=== PATIENT | female | born 1950 | race Caucasian/White ===

== ENCOUNTER 2016-08-26 00:04 | Emergency (ER) | payer OTHER ==
--- NOTE | 2016-08-26 00:07 | PDOC ---
History of Present Illness - General Chief Complaint: Pain, Acute Stated Complaint: LEFT SIDED ABDOMINAL PAIN SINCE APRIL Time Seen by Provider: 08/26/16 00:06 History Source: Patient Exam Limitations: No Limitations - History of Present Illness Initial Comments: 08/26/16 01:44 This is a 66-year-old female who comes in complaining of left-sided abdominal pain times approximately 5 months intermittent. Patient doesn't pain is sharp and intermittent in nature. Patient denies any associated symptoms of nausea, vomiting, diarrhea, cough, congestion shortness of breath or any other complaints. PAST MEDICAL HISTORY: no significant history PAST SURGICAL HISTORY: no significant history FAMILY HISTORY: no pertinant history SOCIAL HISTORY: Pt lives with family and is employed. MEDICATIONS: reviewed ALLERGIES: As per nursing notes Review of Systems General: No fevers or chills, no weakness, no weight loss HEENT: No change in vision. No sore throat,. No ear pain CardioVascular: No chest pain or shortness of breath Respiratory:No cough, or wheezing. Gastrointestinal: As per history of present illness Genitourinary: No dysuria, hematuria, or frequency Musculoskeletal: No joint or muscle pain or swelling Neurologic: No headache, vertigo, dizziness or loss of consciousness Psychiatric: nor depression Skin: No rashes or easy bruising Endocrine: no increased thirst or abnormal weight change Allergic: no skin or latex allergy All other systems reviewed and normal Exam: General: Well-nourished well-developed individual, no acute distress HEENT: Throat: Normal, tonsils normal, no erythema or exudate Neck: Supple, no meningeal signs, no lymphadenopathy Eyes::Pupils equal reactive and round, extraocular motion intact Chest: Nontender to palpation Cardiac: S1-S2 normal, regular rate and rhythm, no murmurs rubs or gallops Respiratory: Lungs clear to auscultation bilateral Abdomen: Soft, nondistended, normal bowel sounds, nontender to palpation diffusely Extremities: Warm, dry, no cyanosis, clubbing, or edema Skin: No rashes Neuro: Alert and oriented x3, nonfocal exam, grossly intact, normal gait Psych: Normal mood and affect Abdominal x-ray flat no break no acute disease, large amount of stool Assessment and plan: This is a 66-year-old female with left-sided intermittent abdominal pain. Patient's x-ray shows a large amount constipation which is most likely the cause of her pain otherwise was normal white count and no abnormal chemistries. Past History - Past Medical History Allergies/Adverse Reactions: Allergies Allergy/AdvReac Type Severity Reaction Status Date / Time No Known Allergies Allergy Verified 08/26/16 00:06 Home Medications: Ambulatory Orders NK [No Known Home Medication] 08/26/16 ED Treatment Course - LABORATORY CBC & Chemistry Diagram: 08/26/16 00:35 08/26/16 00:35 *DC/Admit/Observation/Transfer Diagnosis at time of Disposition: Constipation - Discharge Dispostion Disposition: HOME Condition at time of disposition: Stable Admit: No - Patient Instructions Additional Instructions: Tomorrow drink the bottle of magnesium citrate. Return to the emergency department immediately with ANY new, persistent or worsening symptoms. Continue any medications as previously prescribed by your physician. You should follow up with your primary doctor as soon as possible regarding today's emergency department visit. . Please make sure your doctor reviews the results of your emergency evaluation. Thank you for coming to the Emergency Department today for your care. It was a pleasure to see you today. Please note that your evaluation is INCOMPLETE until you follow-up with your doctor.
[2016-08-26 00:39] VITALS: BP 134/77; PULSE 81; TEMP 97.8; BMI 22.1
[2016-08-26 01:16] LABS: BASOPHIL 0.4 % (0-2.0); EOSINOPHIL 3.4 % (0-4.5); MCH 30.3 pg (25.7-33.7); MCHC 33.4 g/dl (32.0-36.0); MEAN CELL VOLUME 90.5 fl (80-96); MEAN PLT VOLUME 9.7 fl (7.5-11.1); NEUTROPHILS 59.2 % (42.8-82.8); PLATELET COUNT 170 K/MM3 (134-434); RDW 12.8 % (11.6-15.6); WHITE BLOOD COUNT 4.5 K/mm3 (4.0-10.0)
[2016-08-26 01:28] LABS: INR 0.99 (0.82-1.09); PROTHROMBIN TIME (PATIENT) 10.9 SEC (9.98-11.88)
[2016-08-26 01:38] LABS: ALBUMIN 3.7 g/dl (3.4-5.0); ANION GAP 9 (8-16); BILIRUBIN,TOTAL 0.3 mg/dL (0.2-1.0); CALCIUM 9.5 mg/dL (8.5-10.1); CO2 30 mmol/L (21-32); COCKROFT - GAULT 60.2395; CREATININE 0.8 mg/dL (0.55-1.02); GLUCOSE,RANDOM 107 mg/dL (74-106); SGOT/AST 17 U/L (15-37); SGPT/ALT 25 U/L (12-78); TOT PROT 6.4 g/dl (6.4-8.2)
[2016-08-26 01:39] LABS: ALK PHOS 100 U/L (45-117)
[2016-08-26] MEDS ORDERED: MAGNESIUM CITRATE 300 ML BOTTLE PO ONE (01:48)
[2016-08-26] MEDS ORDERED: MAGNESIUM CITRATE 300 ML BOTTLE ONE (01:49)
== END 2016-08-26 01:55 | disposition home or self-care (01) ==
LOC: FER 00:04
DX: K59.00 Constipation, unspecified (principal)
CPT/HCPCS: 36415; 74020-TC; 80053; 83690; 85025; 85610; 99282-25

== ENCOUNTER 2020-01-07 11:16 | Emergency (ER) | payer OTHER ==
[2020-01-07 11:57] VITALS: BP 150/84; PULSE 73; TEMP 98.2; BMI 22.1
[2020-01-07] MEDS ORDERED: ACETAMINOPHEN 1000 MG/100 ML VIAL (NON FORMULARY) IVPB ONE (12:06)
[2020-01-07] MEDS ORDERED: SODIUM CHLORIDE 0.9% 500 ML INFUS.BAG IV ONE (12:06)
[2020-01-07 12:36] LABS: EPITHELIAL CELLS RARE /hpf
[2020-01-07 12:40] LABS: BASO % 0.3 % (0-2.0); EOS % 1.2 % (0-4.5); HEMATOCRIT 39.2 % (32.4-45.2); HEMOGLOBIN 12.9 GM/dl (10.7-15.3); MCH 30.8 pg (25.7-33.7); MEAN CELL VOLUME 93.5 fl (80-96); MEAN PLT VOLUME 9.3 fl (7.5-11.1); MONO % 6.3 % (3.8-10.2); NEUT % 78.2 % (42.8-82.8); PLATELET COUNT 209 K/MM3 (134-434); RBC 4.19 M/mm3 (3.60-5.2); RDW 11.9 % (11.6-15.6); WHITE BLOOD COUNT 8.3 K/mm3 (4.0-10.8)
[2020-01-07 12:51] LABS: ALBUMIN 4.3 g/dl (3.4-5.0); BILIRUBIN,TOTAL 0.7 mg/dl (0.2-1); CALCIUM 9.4 mg/dl (8.5-10); CREATININE 0.8 mg/dl (0.55-1.3); POTASSIUM 4.1 mmol/L (3.5-5.1); TOT PROT 7.1 g/dl (6.4-8.2)
[2020-01-07] MEDS ORDERED: PHENAZOPYRIDINE HCL 100 MG TABLET (FP) PO ONE (13:46)
[2020-01-07] MEDS ORDERED: CEPHALEXIN MONOHYDRATE 500 MG CAPSULE (UD) PO ONE (13:46)
--- NOTE | 2020-01-07 13:52 | PDOC ---
History of Present Illness - General Chief Complaint: Chronic pain Stated Complaint: FLANK PAIN Time Seen by Provider: 01/07/20 11:32 History Source: Patient Exam Limitations: No Limitations - History of Present Illness Initial Comments: 01/07/20 13:47 CHIEF COMPLAINT: Suprapubic and right lower quadrant pressure pain today. HISTORY OF PRESENT ILLNESS: Patient is a 70-year-old woman with a history of right hip bursitis. She states she recently saw the orthopedist and had a cortisone injection for the bursitis, which helped. However, today, she has severe pressure in the suprapubic region and the bladder. She also has urgency to void. There is no nausea or vomiting. There is no fever. There is no kidney pain. She does, however, have chronic pain in her right sciatic region radiating down to the right hip. REVIEW OF SYSTEMS: No fever or chills No headache No sore throat No cough or shortness of breath No chest pain Positive suprapubic pain, feels like "a balloon with pressure about to burst." Positive urinary urgency No hematuria No vaginal discharge Normal bowel movement yesterday, takes chronic laxatives No numbness or weakness Positive chronic right buttock sciatic pain and right lateral hip bursitis pain Past History - Medical History Allergies/Adverse Reactions: Allergies Allergy/AdvReac Type Severity Reaction Status Date / Time No Known Allergies Allergy Verified 01/07/20 11:18 Home Medications: Ambulatory Orders Atorvastatin Ca [Lipitor] 10 mg PO HS 01/07/20 Biotin 5,000 mcg PO HS 01/07/20 Cephalexin [Keflex] 500 mg PO TID #21 capsule 01/07/20 Cholecalciferol (Vitamin D3) [Vitamin D3] 5,000 unit PO ASDIR 01/07/20 Lidocaine 5% Patch [Lidoderm -] 1 patch TP DAILY 01/07/20 Multivit-Min/Iron/Folic/Lutein [Centrum Silver Women Tablet] 1 each PO HS 01/07/20 Rolla-3/Dha/Epa/Fish Oil [Fish Oil 500 mg Softgel] 1 each PO HS 01/07/20 Papaya [Papaya Enzyme] 1 each PO HS 01/07/20 Phenazopyridine HCl [Pyridium] 200 mg PO TID PRN #9 tablet 01/07/20 Ubidecarenone/Vit E Acet [Co Q-10 100 mg Softgel] 1 each PO HS 01/07/20 COPD: No GI Disorders: Yes (ESOPHAGUS EROSIONS, CONSTIPATION) Hypercholesterolemia: Yes - Surgical History Appendectomy: Yes GI Surgery: Yes (LAPAROSCOPY) - Reproductive History Is Patient Now?: No - Psycho-Social/Smoking History Smoking History: Never smoked Have you smoked in the past 12 months: No - Substance Abuse Hx (Audit-C & DAST Scrn) How often the patient has a drink containing alcohol: Monthly or less Score: In Men: 4 or > Positive; In Women: 3 or > Positive: 1 Screen Result (Pos requires Nsg. Audit-10AR): Negative In the last yr the pt used illegal drug/Rx for NonMed reason: No Score: Yes response is considered Positive: 0 Screen Result (Positive result requires Nsg. DAST-10): Negative *Physical Exam - Vital Signs Last Vital Signs Temp Pulse Resp BP Pulse Ox 98.2 F 73 16 150/84 96 01/07/20 11:18 01/07/20 11:18 01/07/20 11:18 01/07/20 11:18 01/07/20 11:18 - Physical Exam 01/07/20 13:50 GENERAL: The patient is awake, alert, and fully oriented, in no acute distress. She appears comfortable and well. HEAD: Normal with no signs of trauma. EYES: Pupils equal, round and reactive to light, extraocular movements intact, sclera anicteric, conjunctiva clear. ENT: Ears normal, nares patent, oropharynx clear without exudates. Moist mucous membranes. NECK: Normal range of motion, supple without lymphadenopathy, JVD, or masses. LUNGS: Breath sounds equal, clear to auscultation bilaterally. No wheezes, and no crackles. HEART: Regular rate and rhythm, normal S1 and S2 without murmur, rub or gallop. ABDOMEN: Soft, mild suprapubic tenderness, normoactive bowel sounds. No guarding, no rebound. No masses. BACK: There is no CVA tenderness EXTREMITIES: Normal range of motion, no edema. No clubbing or cyanosis. No cords, erythema, or tenderness. NEUROLOGICAL: Cranial nerves II through XII grossly intact. Normal speech, normal gait. PSYCH: Normal mood, normal affect. SKIN: Warm, Dry, normal turgor, no rashes or lesions noted. ED Treatment Course - LABORATORY CBC & Chemistry Diagram: 01/07/20 12:25 01/07/20 12:25 - ADDITIONAL ORDERS Additional order review: Laboratory Results 01/07/20 01/07/20 12:25 12:14 Sodium 138 Potassium 4.1 Chloride 104 Carbon Dioxide 24 Anion Gap 10 BUN 20.0 H Creatinine 0.8 Est GFR (CKD-EPI)AfAm 85.37 Est GFR (CKD-EPI)NonAf 73.65 Random Glucose 95 Calcium 9.4 Total Bilirubin 0.7 AST 23 ALT 26 Alkaline Phosphatase 88 Total Protein 7.1 Albumin 4.3 Urine Color Yellow Urine Appearance Clear Urine pH 5.0 Urine Protein Negative Urine Glucose (UA) Negative Urine Ketones Negative Urine Blood 2+ H Urine Nitrite Negative Urine Bilirubin Negative Urine Urobilinogen 0.2 Ur Leukocyte Esterase 2+ Urine RBC 10-20 Urine WBC 60-80 Ur Transition Epith Cell Rare Urine Bacteria Few 01/07/20 12:25 RBC 4.19 MCV 93.5 MCHC 33.0 RDW 11.9 MPV 9.3 Neutrophils % 78.2 Lymphocytes % 14.0 Monocytes % 6.3 Eosinophils % 1.2 Basophils % 0.3 - RADIOLOGY Radiology Studies Ordered: Category Date Time Status ABDOMEN & PELVIS CT WITH CONTR [CT] Stat CT Scan 01/07/20 13:13 Stop Req - Medications Given in the ED: ED Medications Discontinued Medications Generic Name Dose Route Start Last Admin Trade Name Freq PRN Reason Stop Dose Admin Acetaminophen 1,000 mg 01/07/20 12:06 01/07/20 12:30 Ofirmev Injection - IVPB 01/07/20 12:07 1,000 mg ONCE ONE Administration Sodium Chloride 1,000 ml 01/07/20 12:06 01/07/20 12:25 Normal Saline - IV 01/07/20 12:07 1,000 ml ONCE ONE Administration Medical Decision Making - Medical Decision Making 01/07/20 13:50 70-year-old female with suprapubic pressure-like pain. Given the suprapubic t enderness and the chronicity of the right hip and right buttock pain, initially I was concerned for intra-abdominal pathology. CT scan was planned, however, the urinalysis came back with pyuria, positive leukocyte esterase, positive blood, and is suggestive of a urinary tract infection which would explain the suprapubic pain. The abdominal examination is mildly tender in the suprapubic region, but very soft without guarding or rebound. Laboratory studies reviewed. Urinalysis is consistent with infection. Other laboratory studies are unremarkable including normal white blood cell count. Impression: Acute cystitis Plan: Keflex and Pyridium, urine culture sent and pending to confirm susc eptibility to cephalexin. Patient to follow-up with Dr. Mujica, her primary physician. Discharge - Discharge Information Problems reviewed: Yes Clinical Impression/Diagnosis: Urinary tract infection Qualifiers: Urinary tract infection type: acute cystitis Hematuria presence: without hematuria Qualified Code(s): N30.00 - Acute cystitis without hematuria Condition: Stable Disposition: HOME - Admission No - Additional Discharge Information Prescriptions: Cephalexin [Keflex] 500 mg PO TID #21 capsule Phenazopyridine HCl [Pyridium] 200 mg PO TID PRN #9 tablet PRN Reason: bladder pain - Follow up/Referral Referrals: Viktoriya Mujica [Primary Care Provider] - 3 days - Patient Discharge Instructions Patient Printed Discharge Instructions: DI for Urinary Tract Infection (UTI) Additional Instructions: Today you were evaluated for pain in the lower abdomen and pressure in the bladder area. The urinalysis shows a urinary tract infection. Take Keflex antibiotic 3 times a day for 7 days. Take Pyridium 3 times a day to relieve the bladder pressure and pain. Drink plenty of fluids. Follow-up with your primary care physician. Bring a copy of all your laboratory results from the emergency room with you to your next appointment. The urine culture results should be ready in [address] Mujica can check these results, or you can call the emergency department for follow-up of your results on Thursday. Return to the ER for any severe or progressive symptoms. - Post Discharge Activity
== END 2020-01-07 14:11 | disposition home or self-care (01) ==
LOC: FER 11:16
PROC: 3E0333Z Introduction of Anti-inflammatory into Peripheral Vein, Percutaneous Approach (ICD-10-PCS; principal; 2020-01-07)
DX: N30.00 Acute cystitis without hematuria (principal)
CPT/HCPCS: 36415; 80053; 81003; 81015; 85025; 87086; 87186; 99284-25; J0131

== ENCOUNTER 2024-01-13 00:54 | Emergency (ER) | payer OTHER ==
[2024-01-13 01:01] VITALS: BP 144/88; PULSE 78; RESP 18; TEMP 98.1; BMI 24.4
[2024-01-13] MEDS ORDERED: KETOROLAC TROMETHAMINE 30 MG/1 ML VIAL ONE (02:28)
[2024-01-13] MEDS: KETOROLAC TROMETHAMINE 30 MG/1 ML VIAL IM ONE (02:36)
== END 2024-01-13 03:12 | disposition home or self-care (01) ==
LOC: FER 00:54
PROC: 3E0233Z Introduction of Anti-inflammatory into Muscle, Percutaneous Approach (ICD-10-PCS; principal; 2024-01-13)
DX: S22.31XA Fracture of one rib, right side, initial encounter for closed fracture (principal); W19.XXXA Unspecified fall, initial encounter
CPT/HCPCS: 70450-TC; 71046-TC-FY; 71101-TC-RT-FY; 99284-25